=== PATIENT | female | born 1965 | race Caucasian/White ===

== ENCOUNTER 2019-10-17 10:43 | Emergency (ER) | payer BC ==
[2019-10-17] MEDS ORDERED: Orphenadrine 100 MG Tab.ER PO ONE (11:56)
[2019-10-17] MEDS ORDERED: Ketorolac 60 MG/2 ML SDV IM ONE (11:56)
--- NOTE | 2019-10-17 12:01 | EDM.PDOC ---
ED HPI GENERAL MEDICAL PROBLEM - General Chief Complaint: General Stated Complaint: LT ARM NUMB/FLU SYMPTOMS Time Seen by Provider: 10/17/19 11:33 Source of Information: Reports: Patient, RN Notes Reviewed History Limitations: Reports: No Limitations - History of Present Illness INITIAL COMMENTS - FREE TEXT/NARRATIVE: Patient is a 54-year-old female who presents to the ED for evaluation of some left arm numbness/tingling. The patient notes that this pain started somewhat on Thursday, but was worse last night she states that she did not get much sleep due to the pain. She also notes some sharp shooting pains into her back, upper rib cage area on the left side as well. Patient states she is felt mildly nauseous, and did have 2 episodes of diarrhea this morning as well. She does not have any fevers or chills at home, no cough no shortness of breath no chest pain. She is not complaining of any urinary issues, nor does she relate any fall or trauma to the area. Patient states that the pain started further up the arm, and seem to work its way down the left hand, she states it is worse on the radial aspect of her left arm/hand. 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 She denies any past medical history, any scheduled medications, nor does she have a primary care provider that she follows with. Left Arm Pain Score (Numeric/FACES): 4 Left Back Pain Score (Numeric/FACES): 2 - Related Data Allergies Allergy/AdvReac Type Severity Reaction Status Date / Time No Known Allergies Allergy Verified 10/17/19 11:20 Home Meds: Home Meds Orphenadrine [Norflex] 100 mg PO BID PRN #20 tab 10/17/19 [Rx] Past Medical History Genitourinary History: Reports: Other (See Below) Other Genitourinary History: uterine fibroids - Past Surgical History Female Surgical History: Reports: Other (See Below) (uterine fibroid surgery) Social & Family History - Tobacco Use Smoking Status *Q: Current Every Day Smoker Years of Tobacco use: 40 Packs/Tins Daily: 0.3 - Caffeine Use Caffeine Use: Reports: Coffee - Recreational Drug Use Recreational Drug Use: No ED ROS GENERAL - Review of Systems Review Of Systems: See Below Constitutional: Denies: Fever, Chills Respiratory: Denies: Shortness of Breath Cardiovascular: Denies: Chest Pain GI/Abdominal: Reports: Diarrhea (2 looser stools this am), Nausea. Denies: Abdominal Pain, Vomiting : Denies: Dysuria, Frequency, Urgency Musculoskeletal: Reports: Arm Pain (Left, starts at shoulder and works down arm) , Back Pain (Left upper back/rib cage area). Denies: Neck Pain, Shoulder Pain, Joint Pain Neurological: Reports: Numbness (Left arm, radial aspect ), Tingling (Left arm, radial aspect ) ED EXAM, GENERAL - Physical Exam Exam: See Below Exam Limited By: No Limitations General Appearance: Alert, WD/WN, No Apparent Distress Eye Exam: Bilateral Eye: EOMI, Normal Inspection, PERRL Ears: Normal External Exam Nose: Normal Inspection Throat/Mouth: Normal Inspection, Normal Lips, Normal Teeth, Normal Gums, Normal Oropharynx, Normal Voice, No Airway Compromise Head: Atraumatic, Normocephalic Neck: Normal Inspection Respiratory/Chest: No Respiratory Distress, Lungs Clear, Normal Breath Sounds, No Accessory Muscle Use, Chest Non-Tender Cardiovascular: Normal Peripheral Pulses, Regular Rate, Rhythm, No Murmur Peripheral Pulses: 3+: Radial (L), Radial (R) GI/Abdominal: Normal Bowel Sounds, Soft, Non-Tender, No Distention, No Mass Extremities: Normal Inspection, Normal Range of Motion (with normal strength in bilateral extremities), Normal Capillary Refill Neurological: Alert, Oriented, CN II-XII Intact (grossly), Normal Cognition, Normal Reflexes, No Motor/Sensory Deficits Psychiatric: Normal Affect, Normal Mood Skin Exam: Warm, Dry, Intact, Normal Color, No Rash Course - Vital Signs Last Recorded V/S: Last Vital Signs Temp 99.6 F 10/17/19 11:23 Pulse 89 10/17/19 11:23 Resp 20 10/17/19 11:23 BP 121/85 10/17/19 11:23 Pulse Ox 99 10/17/19 11:23 - Orders/Labs/Meds Meds: Medications Discontinued Medications Generic Name Dose Route Start Last Admin Trade Name Freq PRN Reason Stop Dose Admin Ketorolac Tromethamine 60 mg 10/17/19 11:56 10/17/19 12:17 Toradol IM 10/17/19 11:57 60 mg ONETIME ONE Administration Orphenadrine Citrate 100 mg 10/17/19 11:56 10/17/19 12:17 Norflex PO 10/17/19 11:57 100 mg ONETIME ONE Administration - Re-Assessments/Exams Free Text/Narrative Re-Assessment/Exam: 10/17/19 12:01 Patient presents to the ED for evaluation of her left arm pain/numbness/ tingling. I do believe this is more of a musculoskeletal strain in nature, that originates in the trapezius. There is some point tenderness along the upper aspect of the trapezius, and this did seem to reproduce most of her pain that she was feeling. Patient will be treated with Toradol and Norflex for suspected muscle strain. Departure - Departure Time of Disposition: 12:02 Disposition: Home, Self-Care 01 Condition: Fair Clinical Impression: Strain of cervical portion of trapezius muscle - Discharge Information *PRESCRIPTION DRUG MONITORING PROGRAM REVIEWED*: No *COPY OF PRESCRIPTION DRUG MONITORING REPORT IN PATIENT ANA: No Prescriptions: Orphenadrine [Norflex] 100 mg PO BID PRN #20 tab PRN Reason: Spasms Instructions: Muscle Strain, [id number] Referrals: PCP,None [Primary Care Provider] - Forms: ED Department Discharge, ED Return to Work/School Form Additional Instructions: You have been evaluated in the ED for your left arm pain/numbness/tingling. This is most likely due to a muscle strain, that seems to originate out of your trapezius muscle on your left side. This can cause some sharp shooting type pains down the arm as well. Due to inflammation of the nerve because of the strain. Please use ice/heat as tolerated to the affected area. Please try to elevate the affected area to relieve swelling. You may take ibuprofen 600mg q6 hrs for pain relief. Please do so until you have a tolerable level of pain with activity. Do not exceed 3200mg ibuprofen in a 24 hour time period. You were given a prescription for Norflex, please take 1 tab every 12 hours for the next few days to provide further pain relief regarding the strain. Recommend this conservative management plan at least for the next 7 to 10 days. If pain does not seem to be getting much better after these conservative measures, recommend you seek care for reevaluation. Please call [phone] to obtain a follow-up appointment with a primary care provider of your choice, any family practice provider would be able to provide you with the services. Please return to ED if your symptoms should change or worsen. Sepsis Event Note - Evaluation Sepsis Screening Result: No Definite Risk - Focused Exam Vital Signs: Vital Signs Temp Pulse Resp BP Pulse Ox 10/17/19 11:23 99.6 F 89 20 121/85 99 Date Exam was Performed: 10/17/19 Time Exam was Performed: 12:33
== END 2019-10-17 13:03 | disposition home or self-care (01) ==
LOC: JD.ED 10:43
DX: S46.812A Strain of other muscles, fascia and tendons at shoulder and upper arm level, left arm, initial encounter (principal); F17.210 Nicotine dependence, cigarettes, uncomplicated; Z79.899 Other long term (current) drug therapy; X58.XXXA Exposure to other specified factors, initial encounter
CPT/HCPCS: 96372; 99283; A9270; J1885